=== PATIENT | female | born 1965 | race Caucasian/White ===

== ENCOUNTER 2022-12-06 12:43 | Day surgery (SDC) | payer OTHER ==
[~2022-12-06] VITALS: Ht 170.2 cm; Wt 81.6 kg
[2022-12-06 13:13] VITALS: BP 165/71
[2022-12-06 15:45] VITALS: BP 125/69
--- NOTE | 2022-12-07 12:48 | OR ---
[facility] [address] [place], [place] [address] Signed DATE OF OPERATION: 12/06/2022 SURGEON: Darren Venegas MD PREOPERATIVE DIAGNOSIS: Colon screening. POSTOPERATIVE DIAGNOSIS: 1. Polyps x2 of cecum. 2. Significant diverticulosis of sigmoid and left colon. 3. Mild proctitis. PROCEDURE: 1. Total colonoscopy to cecum with cold morcellation polypectomy x1 and cold snare polypectomy x1. 2. Biopsy of rectum. ANESTHESIA: Intravenous sedation; fentanyl 150 mcg and Versed 7 mg total. INDICATION: This 57-year-old white woman is a patient of Dr. Demetrius Tran. She is referred for screening colonoscopy. She is from [place], [place]. She has no symptoms of bleeding, diarrhea, constipation, though she has had some cramping, which change to dietary modification including avoiding lactose containing food. She has no family history of colon cancer. She has had no blood per rectum. She is admitted at this time to undergo screening colonoscopy. She understands the risk of bleeding, infection, and perforation. FINDINGS: The prep was excellent. Complete colonoscopy was undertaken to the cecum without question. She had diverticular changes were significant in the sigmoid and left colon. There were two polyps of the cecum, one about 1 cm, the other about 5 mm. Both were excised completely. There was mild proctitis for which biopsy was obtained, but is probably bowel prep related. DESCRIPTION OF PROCEDURE: The patient was brought to the endoscopy suite and placed in lateral decubitus position, given intravenous sedation to the point of slurred speech and nystagmus. Digital rectal examination was normal. Electronically Signed By: DARREN VENEGAS MD 12/07/22 1248 PATIENT NAME: RAJANI STONE OPERATIVE REPORT DATE OF : 61 REPORT #: [id number] PHYSICIAN: DARREN VENEGAS MD PCP: ADELSO TRAN DO REPORT IS CONFIDENTIAL AND NOT TO BE RELEASED WITHOUT AUTHORIZATION [facility] [address] [place], [place] [address] Signed An Olympus video colonoscope was passed in the rectum and manipulated throughout the colon. Passage to the sigmoid and left colon was challenging on the basis of extensive diverticulosis. Once beyond the sigmoid, scope was rather easily passed to the cecum. The ileocecal valve and appendiceal orifice were easily identified and the cecum fully intubated. There were two polyps of the cecum, one larger than the other and large was excised with cold snare technique and the smaller with cold morcellation technique. The scope was withdrawn and remaining colon was normal except for the diverticula and mild proctitis for which biopsy was obtained. Retroflexed view was normal as well. The scope was removed and the patient was taken to recovery room in good condition. CONCLUDING DIAGNOSIS: Polyps x2 (cecum); extensive diverticulosis sigmoid, mild proctitis. PLAN: Recommend repeat colonoscopy in 2-3 years, sooner if clinically indicated or if adverse pathology is noted on the biopsy specimens. She will return to the ongoing care of Dr. Demetrius Tran. MD SANDRA Oliver/SINCERE /[id number] cc: Demetrius Tran MD Copies: ~ Electronically Signed By: DARREN VENEGAS MD 12/07/22 1248 PATIENT NAME: RAJANI STONE OPERATIVE REPORT DATE OF : 61 REPORT #: [id number] PHYSICIAN: DARREN VENEGAS MD PCP: ADELSO TRAN DO REPORT IS CONFIDENTIAL AND NOT TO BE RELEASED WITHOUT AUTHORIZATION
--- NOTE | 2022-12-12 15:30 | PATH ---
[facility] [address] [facility] [place] [place] [address] Signed SPECIMEN(S): A CECUM COLON POLYPS SPECIMEN(S): B RECTAL BIOPSY SPECIMEN SOURCE: A. CECUM COLON POLYPS B. RECTAL BIOPSY CLINICAL HISTORY: Colon screening; mild proctitis; cecal polyps; diverticulosis FINAL PATHOLOGIC DIAGNOSIS: A. Cecum colon polyps: - Tubular adenoma (multiple fragments). B. Rectal biopsy: - Hyperplastic colonic mucosa, negative for dysplasia or malignancy. JVR:cml MICROSCOPIC EXAMINATION: Histologic sections of all submitted blocks are examined by light microscopy. These findings, together with the gross examination, support the pathologic diagnosis. GROSS DESCRIPTION: A. The specimen, labeled and designated "Piper, P, colon, cecum polypectomy," is received in formalin and consists of multiple suarez-brown soft tissue fragments measuring 0.3 x 0.5 cm in greatest dimension, all specimens are submitted entirely in (A1). B. The specimen, labeled and designated "Piper, P, colon, rectum biopsy," is received in formalin and consists of 1 suarez soft tissue fragment measuring 0.2 x 0.4 cm and is submitted entirely in (B1). MMA (under the direct supervision of a pathologist) The Gross Description was prepared using a voice recognition system. The report was reviewed for accuracy; however, sound-alike word errors, addition and/or deletions may occur. If there is any question about this report, please contact Client Services. PERFORMING LABORATORY: Technical component was performed by [facility], [address] [place] [id number] (CLIA# [id number]). Professional interpretation was performed by [facility], [address] [place] [id number] (CLIA#: [id number]). PATIENT NAME: RAJANI STONE PATHOLOGY DATE OF : 61 REPORT #: [id number] PHYSICIAN: [facility] PCP: ADELSO AMBRIZ DO REPORT IS CONFIDENTIAL AND NOT TO BE RELEASED WITHOUT AUTHORIZATION [address] [place], [place] [address] Signed Diagnostician: Luis Chadwick MD Pathologist Electronically Signed 12/12/2022 Copies: ~ PATIENT NAME: RAJANI STONE PATHOLOGY DATE OF : 61 REPORT #: [id number] PHYSICIAN: [facility] PCP: ADELSO AMBRIZ DO REPORT IS CONFIDENTIAL AND NOT TO BE RELEASED WITHOUT AUTHORIZATION
== END 2022-12-06 16:05 | disposition home or self-care (01) ==
LOC: OPS 12:43 → DS 12:43 → OPS 13:30 → DS 14:00 → OPS 16:05
PROVIDERS: ATTEND Surgery
PROC: 0DBP8ZX Excision of Rectum, Via Natural or Artificial Opening Endoscopic, Diagnostic (ICD-10-PCS; 2022-12-06)
PROC: 0DBH8ZZ Excision of Cecum, Via Natural or Artificial Opening Endoscopic (ICD-10-PCS; principal; 2022-12-06 14:00)
DX: Z12.11 Encounter for screening for malignant neoplasm of colon (principal); R10.9 Unspecified abdominal pain; K57.30 Diverticulosis of large intestine without perforation or abscess without bleeding; K62.89 Other specified diseases of anus and rectum; D12.0 Benign neoplasm of cecum
CPT/HCPCS: 99153; G0500; J2250; J3010; J7121